=== PATIENT | male | born 1975 | race Caucasian/White ===

== ENCOUNTER 2017-01-13 21:19 | Observation (INO) | payer SELFPAY ==
[~2017-01-13] VITALS: Ht 182.9 cm; Wt 62.3 kg
[~2017-01-13 21:19] MED LIST: IBUP-1050 PO; LISI5TAB3 PO
[2017-01-13] MEDS ORDERED: ASPIRIN 81 MG CHEW PO STA (22:06)
[2017-01-13 22:15] LABS: BASO % 0.8 %; BASO ABS # 0.08 K/uL (0-0.2); COMPLETE YES; EOS % 4.2 %; HEMATOCRIT 47.3 % (42-52); IG% 0.3 %; LYMPH % 32.3 %; LYMPH ABS # 3.21 K/uL (1.2-3.4); MEAN CELL VOLUME 88.1 fL (80-100); MEAN CORPUSCULAR HEMOGLOBIN 30.2 pg (25-34); MEAN CORPUSCULAR HGB CONC 34.2 g/dl (32-36); MEAN PLATELET VOLUME 10.1 fL (7.4-10.4); MONO % 13.7 %; NEUT % 48.7 %; PLATELET COUNT 282 K/uL (130-400); RED BLOOD COUNT 5.37 M/uL (4.7-6.1); WHITE BLOOD COUNT 9.95 K/uL (4.8-10.8)
--- NOTE | 2017-01-13 22:20 | EMERGENCY ROOM VISIT NOTE ---
History Report prepared by Jad: Maddy Jason Under the Supervision of: Dr. Jimmy Mccray M.D. First contact with patient: 21:44 Chief Complaint: DIZZY Stated Complaint: DIZZY, FOGGY, VISION, CHEST PRESSURE History of Present Illness The patient is a 41 year old male who presents to the Emergency Room with complaints of constant left chest pressure beginning this afternoon. The patient states that over the last few months he has not been feeling right and has been intermittently dizzy. He reports that he has been having foggy vision and a dull headache over the last few days. 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 The patient reports an extensive family heart history under the age of 55 including heart attacks and CAD. He denies any abdominal pain. The patient states that he has a history of hypertension and smokes 2 packs a day. His notes that his snoring has been significantly worse over the last few days. Source of History: patient Onset: this afternoon Position: chest (left) Quality: pressure Associated Symptoms: No abdominal pain Note: Pt complains of foggy vision and dizziness. Review of Systems See HPI for pertinent positives & negatives. A total of 10 systems reviewed and were otherwise negative. Past Medical & Surgical Medical Problems: (1) Hypertension (2) Tobacco Use Disorder Surgical Problems: (1) Hx of splenectomy Family History No pertinent family history stated. Social History Smoking Status: Current Every Day Smoker Alcohol Use: occasionally Marital Status: Housing Status: lives with family Current/Historical Medications Scheduled PRN Ibuprofen (Advil), 600 MG PO BID PRN for Pain Allergies Coded Allergies: Morphine (Verified Adverse Reaction, Mild, NAUSEA, 02/06/14) Physical Exam Vital Signs Date Time Temp Pulse Resp B/P (MAP) Pulse Ox O2 Delivery O2 Flow Rate FiO2 01/13/17 23:18 64 20 152/93 98 Room Air 01/13/17 22:10 98 Room Air 01/13/17 22:04 65 01/13/17 21:52 67 150/101 67 145/105 89 159/100 01/13/17 21:33 36.7 72 18 168/104 96 Room Air Physical Exam GENERAL: Patient is a healthy-appearing well-nourished male HEAD: Normocephalic atraumatic EYES: Ocular movements intact pupils equal and react to light OROPHARYNX mucous membranes are moist no exudates present no erythema or edema present NECK: Supple no nuchal rigidity CHEST: Good equal expansion LUNGS: Clear and equal to auscultation CARDIAC: Normal S1 and S2 ABDOMEN: Soft nontender no guarding BACK: No CVA tenderness EXTREMITIES: No pain upon palpation normal muscle strength in all groups no clubbing cyanosis or edema NEURO: Patient is following commands and answering questions appropriately. Alert and oriented x3 Cranial Nerves 2-12 grossly intact Medical Decision & Procedures ER Provider Diagnostic Interpretation: X-ray results as stated below per interpretation by me and the radiologist: CHEST ONE VIEW PORTABLE FINDINGS: The lungs are clear. Cardiac silhouette is normal in size. No pleural effusions. No pneumothorax. IMPRESSION: No acute process. Electronically signed by: Cristhian Ford M.D. 01/13/2017 10:56 PM Dictated Date/Time: 01/13/2017 10:52 PM Laboratory Results 01/13/17 21:50 Red Blood Count 5.37, Mean Corpuscular Volume 88.1, Mean Corpuscular Hemoglobin 30.2, Mean Corpuscular Hemoglobin Concent 34.2, Mean Platelet Volume 10.1, Neutrophils (%) (Auto) 48.7, Lymphocytes (%) (Auto) 32.3, Monocytes (%) (Auto) 13.7, Eosinophils (%) (Auto) 4.2, Basophils (%) (Auto) 0.8, Neutrophils # (Auto ) 4.85, Lymphocytes # (Auto) 3.21, Monocytes # (Auto) 1.36, Eosinophils # (Auto ) 0.42, Basophils # (Auto) 0.08 01/13/17 21:50 Test 01/13/17 21:50 White Blood Count 9.95 K/uL (4.8-10.8) Red Blood Count 5.37 M/uL (4.7-6.1) Hemoglobin 16.2 g/dL (14.0-18.0) Hematocrit 47.3 % (42-52) Mean Corpuscular Volume 88.1 fL (80-100) Mean Corpuscular Hemoglobin 30.2 pg (25-34) Mean Corpuscular Hemoglobin Concent 34.2 g/dl (32-36) Platelet Count 282 K/uL (130-400) Mean Platelet Volume 10.1 fL (7.4-10.4) Neutrophils (%) (Auto) 48.7 % Lymphocytes (%) (Auto) 32.3 % Monocytes (%) (Auto) 13.7 % Eosinophils (%) (Auto) 4.2 % Basophils (%) (Auto) 0.8 % Neutrophils # (Auto) 4.85 K/uL (1.4-6.5) Lymphocytes # (Auto) 3.21 K/uL (1.2-3.4) Monocytes # (Auto) 1.36 K/uL (0.11-0.59) Eosinophils # (Auto) 0.42 K/uL (0-0.5) Basophils # (Auto) 0.08 K/uL (0-0.2) RDW Standard Deviation 43.5 fL (36.4-46.3) RDW Coefficient of Variation 13.4 % (11.5-14.5) Immature Granulocyte % (Auto) 0.3 % Immature Granulocyte # (Auto) 0.03 K/uL (0.00-0.02) D-Dimer 190 ug/L FEU (0-500) Anion Gap 7.0 mmol/L (3-11) Est Creatinine Clear Calc Drug Dose 141.4 ml/min Estimated GFR () 116.9 Estimated GFR (Non- 100.9 BUN/Creatinine Ratio 23.8 (10-20) Calcium Level 9.0 mg/dl (8.5-10.1) Total Bilirubin 0.3 mg/dl (0.2-1) Direct Bilirubin 0.1 mg/dl (0-0.2) Aspartate Amino Transf (AST/SGOT) 13 U/L (15-37) Alanine Aminotransferase (ALT/SGPT) 30 U/L (12-78) Alkaline Phosphatase 65 U/L (45-117) Total Creatine Kinase 94 U/L (39-308) Creatine Kinase MB 0.7 ng/ml (0.5-3.6) Creatine Kinase MB Ratio 0.7 (0-3.0) Total Protein 6.8 gm/dl (6.4-8.2) Albumin 3.7 gm/dl (3.4-5.0) Lipase 108 U/L (73-393) Labs reviewed by ED physician. Medications Administered Medications (Trade) Dose Ordered Sig/Lorelei Route Start Time Stop Time Status Last Admin Dose Admin Aspirin (Aspirin Chew) 324 mg NOW STAT PO 01/13/17 22:06 01/13/17 22:08 DC 01/13/17 22:13 324 MG ECG Indication: chest pain Rate (beats per minute): 60 Rhythm: normal sinus Findings: no acute ischemic change, no ectopy ED Course 2143: Past medical records reviewed. The patient was evaluated in room A12B. A complete history and physical examination was performed. 2205: Aspirin Chew 324mg PO. 2325: I discussed the patient's case with Dr. Messer of [facility], he has agreed to evaluate the patient for further management and care. 233: Upon reexamination the patient is doing well. I discussed results and treatment plan with the patient. He verbalizes agreement and understanding. I spoke with Dr. Messer from the [facility] Hospitalist Service. The patient will be evaluated for further management. Medical Decision Differential diagnosis: Etiologies such as cardiac ischemia, aortic dissection, pulmonary embolism, pneumonia, pneumothorax, musculoskeletal, infections, pericarditis, myocarditis , esophageal rupture, gastrointestinal, as well as others were entertained. This is a 41-year-old male who presents emergency department complaining of chest pain. The patient has multiple comorbidities including hypertension that is uncontrolled obesity as well as a very strong family history. The patient also smokes 2 packs per day. He was given aspirin in the emergency department. Repeat examination revealed improvement patient's symptoms. Patient has a normal EKG as well as CK-MB and troponin fractions however due to the high note number comorbidities and using shared medical decision-making, the patient would like to be admitted. I did discuss the case with the hospitalist service who agreed to admit the patient. Medication Reconcilliation Current Medication List: was personally reviewed by me Blood Pressure Screening Patient's blood pressure: Elevated blood pressure Blood pressure disposition: Referred to PCP Consults Time Called: 2321 Consulting Physician: Dr. Messer - [facility] Returned Call: [phone] I discussed the patient's case with Dr. Messer of [facility], he has agreed to evaluate the patient for further management and care. Impression Primary Impression: Precordial chest pain Scribe Attestation The scribe's documentation has been prepared under my direction and personally reviewed by me in its entirety. I confirm that the note above accurately reflects all work, treatment, procedures, and medical decision making performed by me. Departure Information Dispostion Being Evaluated By Hospitalist Referrals Torres Ibarra III, CRNP (PCP) Patient Instructions My [facility]
[2017-01-13 22:36] LABS: ALT/SGPT 30 U/L (12-78); BLOOD UREA NITROGEN 22 mg/dl (7-18); BUN/CREATININE RATIO 23.8 (10-20); CARBON DIOXIDE 23 mmol/L (21-32); CHLORIDE 109 mmol/L (98-107); CREATININE 0.93 mg/dl (0.60-1.40); GLUCOSE 102 mg/dl (70-99); POTASSIUM 3.8 mmol/L (3.5-5.1); SODIUM 139 mmol/L (136-145)
[2017-01-13 22:41] LABS: ALKALINE PHOSPHATASE 65 U/L (45-117); AST/SGOT 13 U/L (15-37); CKMB/CK RATIO 0.7 (0-3.0)
--- NOTE | 2017-01-13 22:58 | DIAGNOSTIC IMAGING REPORT ---
CHEST ONE VIEW PORTABLE HISTORY: Atypical CHEST PAIN COMPARISON: Chest 06/22/2011. FINDINGS: The lungs are clear. Cardiac silhouette is normal in size. No pleural effusions. No pneumothorax. IMPRESSION: No acute process. Electronically signed by: Cristhian Ford M.D. 01/13/2017 10:56 PM Dictated Date/Time: 01/13/2017 10:52 PM
[2017-01-13] MEDS ORDERED: ALUMINUM/MAGNESIUM/SIMETH (MAALOX MAX) 30 ML UDC PO PRN (23:30)
[2017-01-13] MEDS ORDERED: MAGNESIUM HYDROXIDE SUSP 30 ML UDC PO PRN (23:30)
[2017-01-13] MEDS ORDERED: ZOLPIDEM TARTRATE 5 MG TAB PO PRN (23:30)
[2017-01-13] MEDS ORDERED: ONDANSETRON INJ 2 MG/ML 2 ML VIAL IV PRN (23:30)
[2017-01-13] MEDS ORDERED: MoRPHine SULFATE 2 MG/ML CARP IV PRN (23:30)
[2017-01-13] MEDS ORDERED: ACETAMINOPHEN 325 MG TAB PO PRN (23:30)
[2017-01-13] MEDS ORDERED: POLYETHYLENE (MIRALAX) 17 GM PACK PO PRN (23:30)
[2017-01-13] MEDS ORDERED: LISINOPRIL 5 MG TAB PO ONE (23:45)
--- NOTE | 2017-01-13 23:57 | History and Physical ---
History & Physical Date & Time of Service: Jan 13, 2017 at 23:43 Chief Complaint: Dizzy, Foggy, Vision, Chest Pressure Primary Care Physician: Torres Ibarra III, CRNP History of Present Illness Source: patient 41 y/o M Hx HTN, medical noncompliance, smoker - presents with L sided chest pain and pressure. Pain is nonradiating - denies associated nausea, vomiting, diaphoresis, SOB. Complains of an all day headache as well. The pt was diagnosed with HTN a few years ago but has not complied with prescribed medications. 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 Smoking Status: Current Every Day Smoker Marital Status: Housing status: lives with family Multi-Drug Resistant Organisms History of MDRO: No Allergies Coded Allergies: Morphine (Verified Adverse Reaction, Mild, NAUSEA, 02/06/14) Home Medications Scheduled PRN Ibuprofen (Advil), 600 MG PO BID PRN for Pain Review of Systems Constitutional: No fever, No chills, No sweats Eyes: No worsening of vision ENT: No hearing loss, No unusual epistaxis, No nasal symptoms Respiratory: No cough, No sputum, No wheezing Cardiovascular: + chest pain, No orthopnea, No PND Abdomen: No pain, No nausea, No vomiting Musculoskeletal: No joint pain, No muscle pain Genitourinary - Male: No hematuria, No dysuria, No urinary frequency, No urinary urgency Neurologic: + problem reported (headache throughout day), No memory loss, No paralysis, No weakness Psychiatric: No depression symptoms Endocrine: No fatigue Hematologic / Lymphatic: No abnormal bleeding/bruising Integumentary: No rash Allergic / Immunologic: No environmental allergies Physical Exam Vital Signs Date Time Temp Pulse Resp B/P (MAP) Pulse Ox O2 Delivery O2 Flow Rate FiO2 01/13/17 23:18 64 20 152/93 98 Room Air 01/13/17 22:10 98 Room Air 01/13/17 22:04 65 01/13/17 21:52 67 150/101 67 145/105 89 159/100 01/13/17 21:33 36.7 72 18 168/104 96 Room Air General Appearance: WD/WN, no apparent distress Head: normocephalic Eyes: normal inspection, EOMI ENT: normal ENT inspection, pharynx normal Neck: supple, no JVD Respiratory/Chest: chest non-tender, lungs clear, normal breath sounds, no respiratory distress, no accessory muscle use Cardiovascular: regular rate, rhythm, no edema, no gallop, no JVD, no murmur, normal peripheral pulses Abdomen/GI: normal bowel sounds, non tender, soft Back: normal inspection, no CVA tenderness Extremities/Musculoskelatal: normal inspection, no calf tenderness, normal capillary refill, no pedal edema, normal range of motion 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, no motor/sensory deficits, alert, normal mood/affect, normal reflexes, oriented x 3 Skin: normal color, warm/dry Diagnostics Laboratory Results Results Past 24 Hours Test 01/13/17 21:50 Range/Units White Blood Count 9.95 4.8-10.8 K/uL Red Blood Count 5.37 4.7-6.1 M/uL Hemoglobin 16.2 14.0-18.0 g/dL Hematocrit 47.3 42-52 % Mean Corpuscular Volume 88.1 80-100 fL Mean Corpuscular Hemoglobin 30.2 25-34 pg Mean Corpuscular Hemoglobin Concent 34.2 32-36 g/dl Platelet Count 282 130-400 K/uL Mean Platelet Volume 10.1 7.4-10.4 fL Neutrophils (%) (Auto) 48.7 % Lymphocytes (%) (Auto) 32.3 % Monocytes (%) (Auto) 13.7 % Eosinophils (%) (Auto) 4.2 % Basophils (%) (Auto) 0.8 % Neutrophils # (Auto) 4.85 1.4-6.5 K/uL Lymphocytes # (Auto) 3.21 1.2-3.4 K/uL Monocytes # (Auto) 1.36 0.11-0.59 K/uL Eosinophils # (Auto) 0.42 0-0.5 K/uL Basophils # (Auto) 0.08 0-0.2 K/uL RDW Standard Deviation 43.5 36.4-46.3 fL RDW Coefficient of Variation 13.4 11.5-14.5 % Immature Granulocyte % (Auto) 0.3 % Immature Granulocyte # (Auto) 0.03 0.00-0.02 K/uL D-Dimer 190 0-500 ug/L FEU Sodium Level 139 136-145 mmol/L Potassium Level 3.8 3.5-5.1 mmol/L Chloride Level 109 98-107 mmol/L Carbon Dioxide Level 23 21-32 mmol/L Anion Gap 7.0 3-11 mmol/L Blood Urea Nitrogen 22 7-18 mg/dl Creatinine 0.93 0.60-1.40 mg/dl Est Creatinine Clear Calc Drug Dose 141.4 ml/min Estimated GFR () 116.9 Estimated GFR (Non- 100.9 BUN/Creatinine Ratio 23.8 10-20 Random Glucose 102 70-99 mg/dl Calcium Level 9.0 8.5-10.1 mg/dl Total Bilirubin 0.3 0.2-1 mg/dl Direct Bilirubin 0.1 0-0.2 mg/dl Aspartate Amino Transf (AST/SGOT) 13 15-37 U/L Alanine Aminotransferase (ALT/SGPT) 30 12-78 U/L Alkaline Phosphatase 65 45-117 U/L Total Creatine Kinase 94 39-308 U/L Creatine Kinase MB 0.7 0.5-3.6 ng/ml Creatine Kinase MB Ratio 0.7 0-3.0 Troponin I < 0.015 0-0.045 ng/ml Total Protein 6.8 6.4-8.2 gm/dl Albumin 3.7 3.4-5.0 gm/dl Lipase 108 73-393 U/L EKG NSR Impression Assessment and Plan 41 y/o M Hx HTN, medical noncompliance, smoker - presents with L sided chest pain and pressure. Pain is nonradiating - denies associated nausea, vomiting, diaphoresis, SOB. Complains of an all day headache as well. The pt was diagnosed with HTN a few years ago but has not complied with prescribed medications. 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 1) Chest pain - multiple risk factors despite age as above. NTG provided prn, ASA, statin, low dose Heparin. Pt assigned to telemetry and will obtain serial enzymes. He should have a stress test scheduled at the earliest possible time. Fasting lipid profile ordered for AM. 2) HTN - Placed on Lisinopril to gauge effectivity. HR would not tolerate a B alison. 3) Advised to stop smoking and comply with medications and healthy eating. Full code - Heparin prophylaxis Total time for this admit including review of labs, meds, imaging - discussion with pt and ER attending 33 min Level of Care Telemetry Resuscitation Status FULL RESUSCITATION VTE Prophylaxis VTE Risk Assessment Done? Y/N: Yes Risk Level: Low Given or contraindicated: Unfractionated heparin SQ
[2017-01-14 00:40] VITALS: BP 162/110; PULSE 61; TEMP 36.6; O2SAT 98; Ht 182.9 cm; Wt 62.3 kg
[2017-01-14] MEDS ORDERED: IV FLUIDS COMPLETED PRN (00:45)
[2017-01-14] MEDS: NITROGLYCERIN OINT 2% 1GM PACKET EXT SCH ×3 (02:08→13:11)
[2017-01-14] MEDS ORDERED: NICOTINE POLACRILEX 2 MG GUM MT PRN (02:15)
[2017-01-14 04:00] VITALS: BP 128/70; PULSE 66; TEMP 36.9; O2SAT 96
[2017-01-14 07:00] VITALS: BP 126/73; PULSE 73; TEMP 36.7; O2SAT 95
[2017-01-14 07:27] LABS: INR 0.9 (0.9-1.1); PARTIAL THROMBOPLASTIN RATIO 1.2; PROTHROMBIN TIME (PATIENT) 10.1 SECONDS (9.0-12.0)
[2017-01-14 07:45] LABS: CHOLESTEROL 159 mg/dl (0-200); CHOLESTEROL/HDL RATIO 5.5; HDL CHOLESTEROL 29 mg/dl; LDL CHOLESTEROL CALCULATED 94 mg/dl; TRIGLYCERIDES 178 mg/dl (0-150); VERY LOW DENSITY LIPOPROT CALC 36 mg/dl
[2017-01-14 08:00] VITALS: BP 137/72; PULSE 74; O2SAT 95
[2017-01-14] MEDS ORDERED: ATORVASTATIN 20 MG TAB PO SCH (09:00)
[2017-01-14] MEDS ORDERED: NICOTINE 21 MG/24 HR TDSY TD SCH (09:00)
[2017-01-14] MEDS ORDERED: LISINOPRIL 10 MG TAB PO SCH (09:00)
[2017-01-14] MEDS ORDERED: ASPIRIN 81 MG ECTAB PO SCH (09:00)
[2017-01-14] MEDS ORDERED: LPT20 PO (10:23)
[2017-01-14] MEDS ORDERED: ASPEC81 PO (10:23)
[2017-01-14] MEDS ORDERED: LSN10 PO (10:23)
--- NOTE | 2017-01-14 10:39 | Discharge Instructions ---
Discharge Instructions Date of Service Jan 14, 2017. Admission Reason for Admission: Precordial Chest Pain Discharge Discharge Diagnosis / Problem: Precordial Chest Pain; Hypertension Discharge Goals Goal(s): Decrease discomfort, Improve function, Increase independence Activity Recommendations Activity Limitations: resume your previous activity . Instructions / Follow-Up Instructions / Follow-Up Chest Pain: - You had blood work to look at cardiac enzymes to evaluate for a heart attack and these were negative. Monitoring your heart did not show alarming findings - You underwent stress testing that did not find anything that suggest lack of blood flow to the heart or changes in the way the heart functions Hypertension: - Your symptoms are likely related to your blood pressure and will need to be better controlled. - You will be provided with Lisinopril 10 mg daily to take every day. High Triglycerides: - You have a mildly elevated triglycerides - would recommend diet and exercise to help improve these numbers -- Diet, Exercise, and quitting smoking will also help reduce your blood pressure Follow-Up: - Would recommend getting re-established with your family doctor for ongoing evaluations and blood pressure monitoring. Current Hospital Diet Patient's current hospital diet: AHA Diet (Heart Healthy) Discharge Diet Recommended Diet: AHA Diet (Heart Healthy) Pending Studies Studies pending at discharge: no Laboratory Results Lipid Panel Test 01/14/17 06:57 Range/Units Triglycerides Level 178 H 0-150 mg/dl Cholesterol Level 159 0-200 mg/dl HDL Cholesterol 29 mg/dl Cholesterol/HDL Ratio 5.5 LDL Cholesterol, Calculated 94 mg/dl Medical Emergencies . Who to Call and When: Medical Emergencies: If at any time you feel your situation is an emergency, please call 911 immediately. . Non-Emergent Contact Non-Emergency issues call your: Primary Care Provider Call Non-Emergent contact if: you have a fever, your pain is concerning you, you have any medication questions . . "Provider Documentation" section prepared by Chuyita Orellana. . VTE Core Measure Inpt VTE Proph given/why not?: Unfractionated heparin SQ
[2017-01-14 11:54] VITALS: BP 137/72; PULSE 74; TEMP 36.7; O2SAT 95
--- NOTE | 2017-01-14 13:01 | EXERCISE STRESS ECHO ---
*NOTICE TO RECEIVING [employer]Y This information is strictly Confidential and protected under [place] law. [place] law prohibits you from making any further disclosure of this information unless further disclosure is expressly permitted by the written consent of the person to whom it pertains or is authorized by law. A general authorization for the release of medical or other information is not sufficient for this purpose. Hospital accepts no responsibility if the information is made available to any other person, INCLUDING THE PATIENT. Interpretation Summary * Name: MYRON BETTS Study Date: 01/14/2017 10:01 AM BP: 136/82 mmHg * Patient Location: [facility]\S\N282\S\1 HR: 57 * : 1975 (M/d/yyyy) Gender: Male Height: 72 in * Age: 41 yrs Ethnicity: [place] Weight: 260 lb * Ordering Physician: Chuyita Orellana * Referring Physician: Self, Referred * Performed By: Lian Davey RCS * * Reason For Study: CHEST PAIN * BSA: 2.4 m2 * No chest pain or other anginal type symptoms during or following stress. * Hypertensive blood pressure response to exercise. * Normal resting left ventricular systolic function. * Moderate concentric left ventricular hypertrophy. * Normal chamber dimensions. * No significant valvular abnormalities. * This was a normal stress echocardiogram. * The stress ECG response was normal Procedure Details * ECHOEX, CPT #[id number] * ECHO COLOR FLOW, CPT #[id number] * ECHO DOPPLER, CPT #[id number] * A contrast injection of Definity was performed to improve assessment of LV function. * Contrast was injected into an intravenous site in the right arm. * One vial of Definity ultrasound contrast was diluted in normal saline to a total volume of 10 ml. A total of '4' ml of solution was administered during imaging. * Lot # [id number] of Definity utilized for procedure. * Expiration date FEB 19. * The attending nurse who injected the contrast agent was SHABBIR HORNE RN. Left Ventricle * The left ventricle is normal in size. * There is moderate concentric left ventricular hypertrophy. * Left ventricular systolic function is normal. * The left ventricular ejection fraction increases normally with stress. The left ventricular end-systolic cavity size reduces post-stress (normal response). The left ventricular wall motion with stress is normal. * Resting wall motion: Normal. Stress wall motion: Appropriate increase in Left ventricular systolic function and decrease in cavity size. No stress induced segmental wall motion abnormalities. Right Ventricle * The right ventricle is normal in size and function. Atria * The left atrial size is normal. * Right atrial size is normal. Mitral Valve * The mitral valve is normal. * There is no mitral valve stenosis. * There is trace mitral regurgitation. Tricuspid Valve * The tricuspid valve is normal. * There is no tricuspid stenosis. * No tricuspid regurgitation. Aortic Valve * The aortic valve is trileaflet. * The aortic valve opens well. Pulmonic Valve * The pulmonary valve is inadequately visualized, but the Doppler data is adequate for interpretation. * Pulmonic stenosis is absent. * Trace pulmonic valvular regurgitation. Great Vessels * The aortic root is normal size. Pericardium * There is no pericardial effusion. Stress Parameters * Normal baseline electrocardiogram. * The baseline ECG displays normal ST segments. * The stress ECG response was normal * One premature ventricular beat during stress * The stress portion of this study was personally supervised by the undersigned interpreting physician. * Rest heart rate was '57' BPM. * Rest blood pressure was '136/82' * Maximum heart rate achieved was 153 bpm. * Maximum heart rate was 85 % of maximum age-predicted heart rate. * Maximum blood pressure was '205/58' * Total exercise time was '08:31' * Maximum exercise MET level achieved was '10.10' METS * Maximum treadmill speed was '3.40' miles per hour. * Maximum treadmill elevation was '14.00'% grade. * The patient exhibited a hypertensive response with stress. * Exercise was terminated due to 'Fatigue' MMode 2D Measurements and Calculations IVSd 1.6 cm IVSs 1.8 cm LVIDd 4.1 cm LVIDs 3.8 cm LVPWd 1.6 cm LVPWs 1.4 cm IVS/LVPW 1.0 FS 8.1 % EDV(Teich) 75.9 ml ESV(Teich) 62.1 ml EF(Teich) 18.1 % EDV(cubed) 70.8 ml ESV(cubed) 55.1 ml EF(cubed) 22.3 % % IVS thick 9.3 % % LVPW thick -8.13 % LV mass(C)d 268.2 grams LV mass(C)dI 112.6 grams/m\S\2 LV mass(C)s 241.6 grams LV mass(C)sI 101.4 grams/m\S\2 SV(Teich) 13.7 ml SI(Teich) 5.8 ml/m\S\2 SV(cubed) 15.8 ml SI(cubed) 6.6 ml/m\S\2 Ao root diam 3.6 cm Ao root area 10.4 cm\S\2 LA dimension 3.4 cm LA/Ao 0.94 LVOT diam 2.0 cm LVOT area 3.1 cm\S\2 Doppler Measurements and Calculations MV E max caitlyn 70.3 cm/sec MV A max caitlyn 39.2 cm/sec MV E/A 1.8 MV P1/2t max caitlyn 87.1 cm/sec MV P1/2t 63.0 msec MVA(P1/2t) 3.5 cm\S\2 MV dec slope 405.1 cm/sec\S\2 MV dec time 0.32 sec Ao V2 max 102.7 cm/sec Ao max PG 4.2 mmHg Ao max PG (full) 0.85 mmHg NEO(V,A) 2.8 cm\S\2 NEO(V,D) 2.8 cm\S\2 LV V1 max PG 3.4 mmHg LV V1 max 91.8 cm/sec PA V2 max 100.9 cm/sec PA max PG 4.1 mmHg PI max caitlyn 152.7 cm/sec PI max PG 9.3 mmHg PI dec slope 170.3 cm/sec\S\2 PI P1/2t 262.7 msec
[2017-01-14] MEDS ORDERED: HEPARIN SOD 5000 UNIT/0.5 ML CARP SQ SCH (14:00)
--- NOTE | 2017-01-14 17:49 | Discharge Summary ---
Discharge Summary Date of Service Jan 14, 2017. (Chuyita Orellana PA-C) Discharge Summary Admission Date: Jan 13, 2017 at 23:32 Discharge Date: Jan 14, 2017 Discharge Disposition: Home Principal Diagnosis: Precordial Chest Pain and Hypertension Problems/Secondary Diagnoses: (1) Hypertension Status: Chronic (2) Tobacco Use Disorder Status: Chronic Procedures: CHEST ONE VIEW PORTABLE FINDINGS: The lungs are clear. Cardiac silhouette is normal in size. No pleural effusions. No pneumothorax. IMPRESSION: No acute process. STRESS ECHOCARDIOGRAM: * No chest pain or other anginal type symptoms during or following stress. * Hypertensive blood pressure response to exercise. * Normal resting left ventricular systolic function. * Moderate concentric left ventricular hypertrophy. * Normal chamber dimensions. * No significant valvular abnormalities. * This was a normal stress echocardiogram. * The stress ECG response was normal (Chuyita Orellana PA-C) Medication Reconciliation New Medications: Lisinopril (Zestril) 10 Mg Tab 10 MG PO QAM for 30 Days, #30 TAB Continued Medications: Ibuprofen (Advil) 200 Mg Tab 600 MG PO BID PRN for Pain, TAB Discharge Exam Review of Systems: Constitutional: No fever, No chills, No sweats Eyes: No worsening of vision ENT: No nasal symptoms, No sore throat Respiratory: No cough, No dyspnea on exertion, No dyspnea at rest Cardiovascular: No chest pain, No palpitations Abdomen: No pain, No nausea, No vomiting, No diarrhea, No constipation Musculoskeletal: No swelling, No calf pain Genitourinary - Male: No dysuria Hematologic / Lymphatic: No abnormal bleeding/bruising, No clotting problems Integumentary: No rash Physical Exam: General Appearance: WD/WN, no apparent distress Eyes: sclerae normal ENT: hearing grossly normal Neck: supple, no JVD, trachea midline Respiratory/Chest: lungs clear, normal breath sounds, no respiratory distress, no accessory muscle use Cardiovascular: regular rate, rhythm, no gallop, no murmur Abdomen / GI: normal bowel sounds, non tender, soft Extremities: no calf tenderness, no pedal edema Neurologic/Psychiatric: alert, oriented x 3 Skin: normal color, warm/dry (Chuyita Orellana PA-C) Hospital Course ADMISSION: 41 y/o M Hx HTN, medical noncompliance, smoker - presents with L sided chest pain and pressure. Pain is nonradiating - denies associated nausea , vomiting, diaphoresis, SOB. Complains of an all day headache as well. The pt was diagnosed with HTN a few years ago but has not complied with prescribed medications. He has a strong family history of CAD, is overweight, smokes up to 2 packs daily and is a trash truck driver by profession. HOSPITAL COURSE: Mr. Jamison was admitted for chest pain in setting of untreated HTN and tobacco use and was evaluated for ACS rule out. Rhythm monitoring was unremarkable and remained NSR. Serial cardiac enzymes were negative. Stress echo was negative for ischemic changes. Per patient he was prescribed Lisinopril 5 mg in the past and reports good control of his HTN and at the time stopped smoking. Since then, he was resumed smoking and stopped his Lisinopril. He rarely follows up with PCP. He did report resolution of his symptoms with better control of his BP. He does have a significant FMHx of CAD. Fasting lipid profile revealed triglycerides of 178 and recommended dietary/exercise changes. Did encourage smoking cessation and re-establishment with PCP. Patient was D/C' d with Lisinopril 10 mg daily Rx. Total Time Spent: Greater than 30 minutes This includes examination of the patient, discharge planning, medication reconciliation, and communication with other providers. (Chuyita Orellana, JAQUELIN) Discharge Instructions Please refer to the electronic Patient Visit Report (Discharge Instructions) for additional information. (Chuyita Orellana, JAQUELIN) Additional Copies To Torres Ibarra III, CRNP Reviewed: Pt Seen/Exam by Me (Robyn Eugene, ) History Pt is feeling much improved with improved BP. States no further chest pain. No SOB. States he is aware that he needs to change his lifestyle. He now sees the importance of taking his medication daily and will do so. 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 He states (and his girlfriend agrees) that on the weekends he smokes maybe 1-2 cigarettes a day if any. Pt works long hours, sometimes 20 a day, so he is drinking energy drinks as his main hydration. He eats at truck stops most of the day as well. He has a lot of work related stress. He states that he will likely be looking for a new job by the end of the year for several reasons, but that his health is now one of those. Agree with HPI/ROS as noted. (Robyn Eugene, DO) General Appearance: WD/WN, no apparent distress Respiratory: normal breath sounds, no respiratory distress Cardiovascular: normal peripheral pulses, regular rate, rhythm Gastrointestinal: non tender, soft Extremities: non-tender, no pedal edema Neurologic/Psychiatric: alert, normal mood/affect, oriented x 3 Skin Characteristics: normal color, warm/dry (Robyn Eugene, DO) Assessment/Plan Agree with plan as outlined above Chest pain, likely related to untx HTN and stress Personally discussed med compliance, tobacco use, diet, energy drinks, stress management, sleep at length with pt Does not need a statin at this time, although did make pt aware of elevated TG and the need for dietary changes (Robyn Eugene, DO)
== END 2017-01-14 13:25 | disposition home or self-care (01) ==
LOC: C.EDB 21:20 → C.MED 23:32 → ENRESERV 23:46
PROVIDERS: ADMIT Internal Medicine; ATTEND Family Medicine
DX: R07.2 Precordial pain (principal); I10 Essential (primary) hypertension; R42 Dizziness and giddiness; Z90.81 Acquired absence of spleen; F17.200 Nicotine dependence, unspecified, uncomplicated; Z82.49 Family history of ischemic heart disease and other diseases of the circulatory system